=== PATIENT | female | born 1935 | race American Indian/Alaskan Native ===

== ENCOUNTER 2017-12-27 09:27 | Outpatient (CLI) | payer MEDICARE ==
--- NOTE | 2017-12-29 10:12 | Cat Scan Report ---
CT ABDOMEN PELVIS WITHOUT CONTRAST: HISTORY: Abdominal aortic aneurysm. COMPARISON: none. TECHNIQUE: Helical CT in 1.25mm intervals without IV contrast. Sagittal and coronal reconstructions. FINDINGS: Lung bases: Mild cardiomegaly. The visualized lung bases are adequately aerated. Liver: Normal. Biliary system: A few small gallstones are identified within the gallbladder. No biliary dilatation or inflammation. Pancreas: Normal. Spleen: Normal. Kidneys/ureters/bladder: Normal. Adrenal glands: Normal. Aorta: The visualized descending thoracic aorta is markedly ectatic. There is moderate dilatation of the lower thoracic aorta at the aortic hiatus measuring up to 4.7 cm. An aortobiiliac stent is in place, correlate with surgical history. There is a second area aneurysmal dilatation in the distal aorta which extends to the aortic bifurcation. Maximum diameter measures 6.1 cm on coronal image 75. 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 Intestines: There are a few scattered diverticula in the distal colon but no evidence for infection or obstruction. Appendix: Normal. Pelvic viscera: Normal. Ascites: None. Adenopathy: None. Musculoskeletal: Mild osteopenia with diffuse degenerative changes in the thoracolumbar spine. IMPRESSION: Moderate to severe atherosclerotic disease identified throughout the aorta. The lower thoracic aorta is dilated up to 4.7 cm at the aortic hiatus. An aortobiiliac stent is in place with fusiform dilatation of the distal aorta measuring up to 6.1 cm. 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 Please see above. Consider further evaluation with IV contrast if renal function allows. Cholelithiasis. Mild diverticulosis of the distal colon.
== END 2017-12-27 09:28 | disposition home or self-care (01) ==
LOC: CT 09:27
PROVIDERS: ATTEND Surgery Vascular Surgery
DX: I72.3 Aneurysm of iliac artery (principal); K80.20 Calculus of gallbladder without cholecystitis without obstruction; K57.30 Diverticulosis of large intestine without perforation or abscess without bleeding; I51.7 Cardiomegaly; I71.4 Abdominal aortic aneurysm, without rupture; I70.0 Atherosclerosis of aorta; M85.88 Other specified disorders of bone density and structure, other site; M47.895 Other spondylosis, thoracolumbar region; I10 Essential (primary) hypertension; J45.909 Unspecified asthma, uncomplicated
CPT/HCPCS: 74176

== ENCOUNTER 2018-01-20 09:40 | Outpatient (CLI) | payer MEDICARE ==
--- NOTE | 2018-01-21 20:39 | Cat Scan Report ---
FINAL REPORT PROCEDURE: CT ANGIO ABDOMEN PELVIS TECHNIQUE: Computerized axial tomographic angiography of the abdomen and pelvis was performed after the IV injection of iodinated nonionic contrast. The image data was postprocessed using 2-dimensional multiplanar reformatted (MPR) and 3-dimensional (MIP and/or volume rendered) techniques. HISTORY: ABDOMINAL AORTIC ANEURYSM,WITHOUT RUPTURE COMPARISON: 12/27/2017. 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 An aorto bi-iliac endoprosthesis is noted extending from the level of the renal arterial origins. The size of the aneurysmal sac is unchanged measuring about 7.5 x 5.8 centimeters in maximal AP and transverse dimensions. There is no evidence of any endo leak. Celiac artery: There is mild degree stenosis of the origin of celiac artery. Superior mesenteric artery: Normal. Left renal artery: Mild degree aneurysmal dilatation is noted at the origin. There is no significant stenosis of the main renal artery. Right renal artery: Mild degree stenosis is noted at the origin. Inferior mesenteric artery: Occluded Common iliacs: There is aneurysmal dilatation of bilateral common iliacs. Right common iliac artery measures 2.7 centimeters and the left common iliac artery measures 2.3 centimeters as noted on the prior study. Right iliac lining is terminating in the distal common iliac. External iliacs: Left iliac limb of the prosthesis is terminating in the mid external iliac. Otherwise bilateral external iliac arteries are normal caliber. 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 Right internal iliac artery demonstrates a moderate degree stenosis at the origin. Abdominal and pelvic viscera: Normal. Other: Cardiomegaly is noted. Prominent interstitial markings are identified involving the visualized bilateral lower lungs. A small cystic lesion of the right lobe liver is stable and unchanged measuring about 6 millimeters in diameter. Small calcified densities are noted in spleen most likely representing old healed granulomatous disease. Moderate degree degenerative changes are noted involving the lumbar spine. 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 Left limb of the prosthesis is extending into the left external iliac. Right limb is terminating in the right common iliac.
== END 2018-01-20 09:41 | disposition home or self-care (01) ==
LOC: CT 09:40
PROVIDERS: ATTEND Surgery Vascular Surgery
DX: I71.4 Abdominal aortic aneurysm, without rupture (principal); I77.4 Celiac artery compression syndrome; I72.2 Aneurysm of renal artery; I51.7 Cardiomegaly; I70.1 Atherosclerosis of renal artery; K55.069 Acute infarction of intestine, part and extent unspecified; K76.89 Other specified diseases of liver; M47.896 Other spondylosis, lumbar region; Z95.828 Presence of other vascular implants and grafts
CPT/HCPCS: 36415; 74174; 82565; 84520; Q9967